=== PATIENT | female | born 1990 | race Caucasian/White ===

== ENCOUNTER → 2019-06-25 13:52 | Outpatient (BNVA) | payer BC, SELFPAY | PROVIDERS: Family Provider Nurse Practitioner; PCP Nurse Practitioner; Visit Provider Nurse Practitioner | DX: Z12.4 Encounter for screening for malignant neoplasm of cervix (principal); Z11.3 Encounter for screening for infections with a predominantly sexual mode of transmission; R00.2 Palpitations; K02.9 Dental caries, unspecified | CPT/HCPCS: 84443; 87491; 87591 ==

== ENCOUNTER 2019-06-26 15:27 | Outpatient (REF) | payer SELFPAY ==
[2019-06-26 16:32] LABS: Estmated Average Glucose 103; Hemoglobin A1C 5.2 % (4.0-6.0)
[2019-06-26 19:26] LABS: Chol HDL Ratio 3.32 mg/dL (0.0-4.40); Cholesterol 126 mg/dL (0-200); Glucose 62 mg/dL (65-115); HDL Cholesterol 38 mg/dL (60-100); LDL Cholesterol Calculated 57 mg/dL (50-129); Triglycerides 156 mg/dL (0-150)
== END 2019-06-26 15:28 | disposition home or self-care (01) ==
LOC: LAB 15:27
PROVIDERS: Family Provider Nurse Practitioner; PCP Nurse Practitioner; Visit Provider Dermatology
DX: Z13.9 Encounter for screening, unspecified (principal)
CPT/HCPCS: 80061; 82947; 83036

== ENCOUNTER → 2019-12-10 14:39 | Outpatient (BNVA) | payer BC, SELFPAY | PROVIDERS: Family Provider Nurse Practitioner; PCP Nurse Practitioner; Visit Provider Nurse Practitioner | DX: M25.571 Pain in right ankle and joints of right foot (principal) | CPT/HCPCS: 73610 ==

== ENCOUNTER → 2020-11-20 09:04 | Outpatient (BNVA) | payer BC, SELFPAY | PROVIDERS: Family Provider Nurse Practitioner; PCP Nurse Practitioner; Visit Provider Nurse Practitioner | DX: R00.2 Palpitations (principal); E78.5 Hyperlipidemia, unspecified | CPT/HCPCS: 80053; 83036; 84443 ==

== ENCOUNTER → 2021-06-08 09:33 | Outpatient (BNVA) | payer SELFPAY | PROVIDERS: Family Provider Nurse Practitioner; PCP Nurse Practitioner; Visit Provider Nurse Practitioner | DX: O20.9 Hemorrhage in early pregnancy, unspecified (principal) | CPT/HCPCS: 84702 ==

== ENCOUNTER → 2022-01-18 09:13 | Outpatient (BNVA) | payer SELFPAY | PROVIDERS: Family Provider Nurse Practitioner; PCP Nurse Practitioner; Visit Provider Nurse Practitioner | DX: L73.2 Hidradenitis suppurativa (principal); R00.2 Palpitations; Z12.4 Encounter for screening for malignant neoplasm of cervix; Z30.41 Encounter for surveillance of contraceptive pills | CPT/HCPCS: 80053; 80061; 84443; 88175 ==

== ENCOUNTER → 2022-09-13 15:34 | Outpatient (BNVA) | payer SELFPAY | PROVIDERS: Family Provider Nurse Practitioner; PCP Nurse Practitioner; Visit Provider Nurse Practitioner | DX: Z12.4 Encounter for screening for malignant neoplasm of cervix (principal) | CPT/HCPCS: 88175 ==

== ENCOUNTER 2023-09-29 17:12 | Emergency (ER) | payer SELFPAY ==
[2023-09-29 17:22] VITALS: BP 132/84; PULSE 86; RESP 18; TEMP 36.7; O2SAT 100
[2023-09-29 17:54] LABS: Basophils # 0.1 10^3/uL (0.0-0.1); Basophils % 0.5 %; Eosinophils # 0.2 10^3/uL (0.0-0.8); Eosinophils % 1.5 %; Lymphocytes # 2.8 10^3/uL (0.8-4.8); Mean Corpuscular HGB Conc 33.6 g/dL (30-55); Mean Corpuscular Volume 89.4 fl (85-98); Mean Platelet Volume 9.3 fL (7.4-10.4); Monocytes # 0.7 10^3/uL (0.2-0.9); Monocytes % 6.5 %; Neutrophils # 6.63 10^3/uL (1.8-7.7); Nucleated Red Blood Cells % 0 %; Platelet Count 271 10^3/cmm (157-399); Red Blood Count 4.36 10^6/uL (3.85-5.65); Red Cell Distribution Width 12.3 % (12.1-15.1); White Blood Count 10.36 10^3/uL (3.29-11.43)
[2023-09-29 18:14] LABS: Alanine Aminotransferase 56 U/L (0-33); Albumin Level 4.4 g/dL (3.5-5.2); Alkaline Phosphatase 95 U/L (35-105); Anion Gap 12.8 (5-19); Aspartate Amino Transferase 28 U/L (0-32); Blood Urea Nitrogen 12 mg/dL (6-20); Calcium 8.9 mg/dL (8.5-10.5); Carbon Dioxide 29 mmol/L (22-29); Chloride 101 mmol/L (98-107); Creatinine Clr Calc Pharmacy 151.8937; Globulin 2.8 g/dL (1.3-4.6); Glomerular Filtration Rate 96.4 mL/min (90-130); Glucose 86 mg/dL (65-115); Osmolality Calculated 287 mOsm/kg (285-295); Potassium 3.8 mmol/L (3.5-5.1); Sodium 139 mmol/L (136-145); Total Bilirubin 0.2 mg/dL (0.15-1.2); Total Protein 7.2 g/dL (6.6-8.7)
[2023-09-29 18:39] LABS: HIV 1 & 2 Antibody Non-Reactive (Non-Reactiv); HIV 1 & 2 Antigen Non-Reactive (Non-Reactiv)
--- NOTE | 2023-09-29 18:45 | W.ED.GENADLT ---
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 She confirms that she was wearing gloves at the time of the incident and washed the area well immediately afterward. 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 She mentions that she is not currently experiencing any pain related to the needle stick but is sore from rock climbing and caving activities she engaged in recently. Ana is aware that she needs to complete some paperwork and return for follow-up blood tests to monitor for any potential infections, with specific mention of HIV testing at scheduled intervals. Review of Systems General: Reports: 10 or more systems reviewed and unremarkable except in HPI and below PFSH ED PFSH: Medical History Anxiety Cervical cancer screening Dyslipidemia Obesity (BMI 30.0-34.9) Smoker Surgical History History of broken leg Repair plate and screws-2008 Family History Mother Diabetes Hypertension Grandmother Hypertension Diabetes Social History Smoking and tobacco/nicotine status: current every day tobacco/nicotine user Second hand smoke exposure: No Alcohol intake: current Alcohol intake frequency: holidays/special occasions only Substance/Drug Use: never Adopted: No Caregiver/support person: No Lives independently: Yes Household members: children Marital status: Number of children: 2 service: No Current occupational status: employed Pets and animals: Yes Do you think of yourself as: Straight/Heterosexual Current gender identity: Female Female Reproductive History: Para: 2 Physical Exam Const: COMMON NORMALS: no acute distress, patient oriented x3, healthy appearing, alert and well nourished HENMT: COMMON NORMALS: normocephalic HEAD & SCALP: normocephalic Eye: COMMON NORMALS: EOMs intact bilaterally Neck/C-Spine: COMMON NORMALS: full ROM and supple Resp: COMMON NORMALS: normal respiratory effort, No retractions and clear to auscultation bilaterally AUSCULTATION: clear to auscultation bilaterally Cardio: COMMON NORMALS: regular rate, regular rhythm, No gallops present (Cardio) and No murmurs present (Cardio) RATE: regular rate RHYTHM: regular rhythm GI: COMMON NORMALS: Soft to palpation and non-tender PALPATION: Yes Soft to palpation Extremity: GENERAL: Yes normal exam except as noted Neuro: COMMON NORMALS: patient oriented x3 SENSORIUM/ORIENTATION: Yes alert Skin: COMMON NORMALS: no rashes or lesions noted GENERAL SKIN EXAM: no rashes or lesions noted OTHER: Small puncture wound noted on the index finger of her left hand Course Vital Signs: Vital signs: Vital Signs Temperature 98.1 F 09/29/23 17:22 Pulse Rate 86 09/29/23 17:22 Respiratory Rate 18 09/29/23 17:22 Blood Pressure 132/84 09/29/23 17:22 Pulse Oximetry 100 09/29/23 17:22 Oxygen Delivery Me thod Room Air 09/29/23 17:22 MDM - General Adult Medical Decision Making 32-year-old female presents to the emergency department for evaluation after an accidental needlestick. Patient reports that the person's blood that was on the needle had no past medical history of hepatitis, HIV, or any other known blood-borne pathogens. The patient was wearing a glove when the accidental needlestick happened. She did clean the wound well after the stick. Her risk of bassem a blood-borne pathogen is low. Recommended to the patient that we do not do prophylaxis at this time. Patient was in agreement. Provided her handout for follow-up labs at 3, 6, 12 months. She understood. Discussed return precautions. Patient discharged home in good condition. Lab Data 09/29/23 17:45 09/29/23 17:45 Laboratory Results WBC 10.36 10^3/uL (3.29-11.43) 09/29/23 17:45 RBC 4.36 10^6/uL (3.85-5.65) 09/29/23 17:45 Hgb 13.10 g/dL (11.27-16.99) 09/29/23 17:45 Hct 39.0 % (36-47) 09/29/23 17:45 MCV 89.4 fl (85-98) 09/29/23 17:45 MCH 30.0 pg (27-33) 09/29/23 17:45 MCHC 33.6 g/dL (30-55) 09/29/23 17:45 RDW 12.3 % (12.1-15.1) 09/29/23 17:45 Plt Count 271 10^3/cmm (157-399) 09/29/23 17:45 MPV 9.3 fL (7.4-10.4) 09/29/23 17:45 Neut % (Auto) 64.0 % 09/29/23 17:45 Lymph % (Auto) 27.0 % 09/29/23 17:45 Stevens % (Auto) 6.5 % 09/29/23 17:45 Eos % (Auto) 1.5 % 09/29/23 17:45 Baso % (Auto) 0.5 % 09/29/23 17:45 Neut # (Auto) 6.63 10^3/uL (1.8-7.7) 09/29/23 17:45 Lymph # (Auto) 2.8 10^3/uL (0.8-4.8) 09/29/23 17:45 Stevens # (Auto) 0.7 10^3/uL (0.2-0.9) 09/29/23 17:45 Eos # (Auto) 0.2 10^3/uL (0.0-0.8) 09/29/23 17:45 Baso # (Auto) 0.1 10^3/uL (0.0-0.1) 09/29/23 17:45 Nucleated RBC % (auto) 0 % 09/29/23 17:45 Nucleated RBCs # 0.0 /100WBC 09/29/23 17:45 Sodium 139 mmol/L (136-145) 09/29/23 17:45 Potassium 3.8 mmol/L (3.5-5.1) 09/29/23 17:45 Chloride 101 mmol/L (98-107) 09/29/23 17:45 Carbon Dioxide 29 mmol/L (22-29) 09/29/23 17:45 Anion Gap 12.8 (5-19) 09/29/23 17:45 BUN 12 mg/dL (6-20) 09/29/23 17:45 Creatinine 0.7 mg/dL (0.5-0.9) 09/29/23 17:45 GFR Calculation 96.4 mL/min (90-130) 09/29/23 17:45 Glucose 86 mg/dL (65-115) 09/29/23 17:45 Calculated Osmolality 287 mOsm/kg (285-295) 09/29/23 17:45 Calcium 8.9 mg/dL (8.5-10.5) 09/29/23 17:45 Total Bilirubin 0.2 mg/dL (0.15-1.2) 09/29/23 17:45 AST 28 U/L (0-32) 09/29/23 17:45 ALT 56 U/L (0-33) H 09/29/23 17:45 Alkaline Phosphatase 95 U/L (35-105) 09/29/23 17:45 Total Protein 7.2 g/dL (6.6-8.7) 09/29/23 17:45 Albumin 4.4 g/dL (3.5-5.2) 09/29/23 17:45 Globulin 2.8 g/dL (1.3-4.6) 09/29/23 17:45 HIV 1&2 Ab & HIV 1 Ag Non-reactive (Non-Reactiv) 09/29/23 17:45 HIV 1&2 Antibody Non-reactive (Non-Reactiv) 09/29/23 17:45 No radiology studies performed this visit Discharge Plan Discharge Patient Disposition: Home Clinical Impression: Employee exposure to blood Condition: Stable Prescriptions: No Action propranolol 20 mg tablet 20 mg PO BID Qty: 60 5RF citalopram [Celexa] 20 mg tablet 20 mg PO .at bedtime Qty: 30 5RF Alyacen 1 (28) 1-35 mg-mcg tablet 1 tab PO DAILY Qty: 28 11RF buspirone 10 mg tablet 10 mg PO BID Qty: 60 5RF Probiotic Digestive Care 20 billion cell capsule See Rx Instructions PO .2 times day Qty: 60 2RF Rx Instructions: 20 billion cell PO .2 times day; Discharge Orders: Discharge ED (Routine); Ordered 09/29/23 Ordered By: Todd Law Referrals: Lavelle Vázquez, [employer] [Primary Care Provider] - Discharge Diet: Usual diet Discharge Activity: Resume usual activity Patient Instructions: Blood/Body Fluid Exposure - Occupational, Needle Stick Injuries (ED), Opioid Safety, Pain Management Activity Restrictions/Additional Instructions: Please return the emergency department with any concerning signs of infection. Coding Level of Care Code ED Remelt Operator for Ida Che
[2023-09-29 18:51] VITALS: BP 128/86; PULSE 79; RESP 16; TEMP 36.7; O2SAT 100
[2023-09-29 21:13] LABS: Hepatitis A Antibody IgM Non-Reactive (Nonreactive); Hepatitis B Core IgM Non-Reactive (Nonreactive); Hepatitis B Surface Antigen Non-Reactive (Nonreactive); Hepatitis C Virus Antibody Non-Reactive (Nonreactive)
== END 2023-09-29 18:51 | disposition home or self-care (01) ==
PROVIDERS: Family Medicine; Emergency Provider General Practice; Family Provider Nurse Practitioner; PCP Nurse Practitioner
DX: S61.231A Puncture wound without foreign body of left index finger without damage to nail, initial encounter (principal); Z77.21 Contact with and (suspected) exposure to potentially hazardous body fluids; W46.1XXA Contact with contaminated hypodermic needle, initial encounter; Y99.0 Civilian activity done for income or pay; Z72.0 Tobacco use; E78.5 Hyperlipidemia, unspecified
CPT/HCPCS: 36415; 80053; 80074; 85025; 87806; 99283

== ENCOUNTER → 2023-12-04 11:09 | Outpatient (BNVA) | payer OTHER, SELFPAY | PROVIDERS: Family Provider Nurse Practitioner; PCP Nurse Practitioner; Visit Provider Nurse Practitioner | DX: W46.0XXA Contact with hypodermic needle, initial encounter (principal) | CPT/HCPCS: 87806 ==

== ENCOUNTER → 2024-03-18 11:24 | Outpatient (BNVA) | payer OTHER, SELFPAY | PROVIDERS: Family Provider Nurse Practitioner; PCP Nurse Practitioner; Visit Provider Nurse Practitioner | DX: Z11.4 Encounter for screening for human immunodeficiency virus [HIV] (principal) | CPT/HCPCS: 87806 ==